=== PATIENT | male | born 1980 | race Caucasian/White ===

== ENCOUNTER 2019-01-26 21:46 | Emergency (ER) | payer OTHER ==
[~2019-01-26] VITALS: Ht 188 cm; Wt 113.4 kg
[~2019-01-26 21:46] MED LIST: COZAAR25 MG PO
[2019-01-27] MEDS ORDERED: KETO10TA2 PO (02:17)
== END 2019-01-27 02:27 | disposition home or self-care (01) ==
LOC: ER 21:46
DX: S20.211A Contusion of right front wall of thorax, initial encounter (principal); S60.221A Contusion of right hand, initial encounter; W18.39XA Other fall on same level, initial encounter; Y93.89 Activity, other specified; Y92.89 Other specified places as the place of occurrence of the external cause; Y99.8 Other external cause status

== ENCOUNTER 2019-07-30 17:37 | Emergency (ER) | payer OTHER ==
[~2019-07-30] VITALS: Ht 188 cm; Wt 113.4 kg
[~2019-07-30 17:37] MED LIST changes: +KETO10TA2 PO
[2019-07-30] MEDS ORDERED: [UNRECOGNIZED DRUG - REMARK] (17:49)
[2019-07-30] MEDS ORDERED: [UNRECOGNIZED DRUG - OTHER] (17:49)
[2019-07-30] MEDS ORDERED: DIURETICO (17:50)
[2019-07-30] MEDS ORDERED: OSEL75CA PO (19:25)
[2019-07-30] MEDS ORDERED: KETO10TA2 PO (19:25)
[2019-07-30] MEDS ORDERED: MUCINEX DM ER1 EAC1 PO (19:25)
[2019-07-30] MEDS ORDERED: AIRBORNE EFFER1 EACH PO (19:25)
== END 2019-07-30 20:04 | disposition home or self-care (01) ==
LOC: ER 17:37
DX: J11.1 Influenza due to unidentified influenza virus with other respiratory manifestations (principal); R51 Headache

== ENCOUNTER 2020-06-10 07:51 | Outpatient (CLI) | payer OTHER ==
[~2020-06-10 07:51] MED LIST changes: +AIRBORNE EFFER1 EACH PO; +DIURETICO; +MUCINEX DM ER1 EAC1 PO; +OSEL75CA PO; +[UNRECOGNIZED DRUG - OTHER]; +[UNRECOGNIZED DRUG - REMARK]
== END 2020-06-10 07:53 | disposition home or self-care (01) ==
LOC: SONOGRAMA 07:51
PROVIDERS: ATTEND Otolaryngology Otology & Neurotology
DX: K70.0 Alcoholic fatty liver (principal)

== ENCOUNTER → 2020-06-10 08:13 | Outpatient (CLI) | payer OTHER | END | disposition home or self-care (01) | LOC: LAB 08:13 | PROVIDERS: ATTEND Specialist | DX: E11.9 Type 2 diabetes mellitus without complications (principal) ==

== ENCOUNTER 2021-03-23 16:56 | Emergency (ER) | payer OTHER ==
[~2021-03-23] VITALS: Ht 188 cm; Wt 118.8 kg
== END 2021-03-23 18:49 | disposition home or self-care (01) ==
LOC: ER 16:56
DX: S90.851A Superficial foreign body, right foot, initial encounter (principal); X58.XXXA Exposure to other specified factors, initial encounter; Y93.89 Activity, other specified; Y92.89 Other specified places as the place of occurrence of the external cause; Y99.8 Other external cause status

== ENCOUNTER 2023-07-25 14:50 | Outpatient (CLI) | payer OTHER | END 2023-07-25 15:03 | disposition home or self-care (01) | LOC: RAD 14:50 | PROVIDERS: ATTEND Chiropractor | DX: M79.604 Pain in right leg (principal) ==

== ENCOUNTER 2023-12-28 09:21 | Outpatient (CLI) | payer OTHER | END 2023-12-28 09:30 | disposition home or self-care (01) | LOC: RAD 09:21 | PROVIDERS: ATTEND Chiropractor | DX: S63.509A Unspecified sprain of unspecified wrist, initial encounter (principal) ==

== ENCOUNTER 2024-06-03 08:22 | Outpatient (CLI) | payer OTHER | END 2024-06-03 08:37 | disposition home or self-care (01) | LOC: SONOGRAMA 08:22 | DX: R74.01 Elevation of levels of liver transaminase levels (principal) ==

== ENCOUNTER 2024-12-30 13:39 | Outpatient (CLI) | payer OTHER | END 2024-12-30 13:50 | disposition home or self-care (01) | LOC: RAD 13:39 | PROVIDERS: ATTEND Chiropractor | DX: M25.562 Pain in left knee (principal) ==